=== PATIENT | female | born 1960 | race Caucasian/White ===

== ENCOUNTER 2020-10-19 12:40 | Emergency (ER) | payer OTHER ==
[~2020-10-19] VITALS: Ht 157.5 cm; Wt 85.5 kg
[~2020-10-19 12:40] MED LIST: KETO10TA2 PO
[2020-10-19 12:42] VITALS: BP 120/90
[2020-10-19] MEDS ORDERED: ketorolac trometh inj. 60 MG/2 ML VIAL IM ONE (13:50)
== END 2020-10-19 14:38 | disposition home or self-care (01) ==
LOC: ER 12:42
DX: S70.02XA Contusion of left hip, initial encounter (principal); M25.552 Pain in left hip; G62.9 Polyneuropathy, unspecified; I10 Essential (primary) hypertension; G89.29 Other chronic pain; Z88.0 Allergy status to penicillin; Z88.1 Allergy status to other antibiotic agents; Z88.6 Allergy status to analgesic agent; Z88.5 Allergy status to narcotic agent; Z88.8 Allergy status to other drugs, medicaments and biological substances; Z79.899 Other long term (current) drug therapy; W19.XXXA Unspecified fall, initial encounter; Y93.89 Activity, other specified; Y92.89 Other specified places as the place of occurrence of the external cause; Y99.8 Other external cause status
CPT/HCPCS: 73502; 96372; 99284; J1885

== ENCOUNTER 2024-01-02 15:39 | Emergency (ER) | payer OTHER ==
[~2024-01-02] VITALS: Ht 157.5 cm; Wt 88.6 kg
[2024-01-02 15:55] VITALS: BP 174/94; PULSE 105; O2SAT 99
[2024-01-02 16:15] VITALS: RESP 14
[2024-01-02] MEDS: ketorolac tromethamine 15mg/ml inj. IM ONE (16:15)
[2024-01-02 16:20] VITALS: TEMP 98.4
== END 2024-01-02 16:25 | disposition home or self-care (01) ==
LOC: ER 15:40
DX: K08.89 Other specified disorders of teeth and supporting structures (principal); K04.7 Periapical abscess without sinus; I10 Essential (primary) hypertension; Z88.1 Allergy status to other antibiotic agents; Z88.0 Allergy status to penicillin; Z88.2 Allergy status to sulfonamides; Z88.6 Allergy status to analgesic agent; Z88.4 Allergy status to anesthetic agent; Z79.899 Other long term (current) drug therapy
CPT/HCPCS: 96372; 99283; J1885